=== PATIENT | female | born 1990 | race American Indian/Alaskan Native ===

== ENCOUNTER 2018-06-15 23:10 | Emergency (ER) | payer MEDICAID ==
[2018-06-15 23:56] LABS: Bilirubin,Urine NEG (Negative); Blood,Urine NEG (Negative); Protein,Urine <15 mg/dL mg/dL (Negative); Urobilinogen,Urine < 2.0 mg/dL (<2.0)
[2018-06-16] LABS: Basophils # (Auto) 0.1 K/mm3 (0.0-0.1); Basophils % (Auto) 0.9 % (0.0-1.8); Eosinophils # (Auto) 0.4 K/mm3 (0.0-0.4); Hematocrit 35.7 % (30.3-42.9); Hemoglobin 12.3 gm/dl (10.1-14.3); Lymphocytes # (Auto) 2.7 K/mm3 (1.2-5.4); Lymphocytes % (Auto) 41.8 % (13.4-35.0); Mean Corpuscular HGB Conc 34 % (30-34); Mean Corpuscular Volume 91 fl (79-97); Monocytes # (Auto) 0.7 K/mm3 (0.0-0.8); Monocytes % (Auto) 11.3 % (0.0-7.3); Platelet Count 226 K/mm3 (140-440); Red Blood Count 3.95 M/mm3 (3.65-5.03); Red Cell Distribution Width 14.6 % (13.2-15.2)
[2018-06-16 00:16] LABS: Color,Urine Yellow (Yellow)
--- NOTE | 2018-06-16 01:53 | Ultrasound Report ---
FINAL REPORT PROCEDURE: US OB < = 14 WEEKS FETUS TECHNIQUE: Real-time transabdominal and transvaginal sonography of the uterus, placenta, amniotic fl uid, adnexa, and fetus was performed with image documentation. Measurements were obtained to determin e age/size. M-mode Doppler was used to document heartbeat. CPT 75953 HISTORY: possible prenant with vag bleeding COMPARISON: No prior studies are available for comparison. FINDINGS: CRL: 2.8 mm, which corresponds to a gestational age of: 5 weeks, 6 days. Yolk Sac: Normal. Embryonic Cardiac Activity: No heart activity is identified on this study. Gestational Sac: Normal. Amniotic fluid: Normal. Cervix: Normal. Right Ovary: Normal. Left Ovary: Normal. Estimated delivery date: Normal. Uterus and adnexa: Normal. The findings are most consistent with an early intrauterine . No heart activity is carolyn ntified on this study. This may be too early for heart activity. Followup study with repeat ultrasoun d within 14 days would be of benefit. IMPRESSION: There is a gestational sac within the uterus. A pole is identified. The approximate gestational age is 5 weeks. No heart activity is identified on this study. Findings could indicate early i ntrauterine or possibly failure. Followup evaluation with repeat ultrasound in ap proximately 14 days should be entertained.
--- NOTE | 2018-06-16 02:30 | Emergency Department Report ---
ED Female HPI - General Chief complaint: Vaginal Bleeding Stated complaint: VAGINAL BLEEDING Time Seen by Provider: 06/16/18 02:26 Source: patient Mode of arrival: Ambulatory Limitations: No Limitations - History of Present Illness MD Complaint: vaginal bleeding - Related Data Home Medications Medication Instructions Recorded Confirmed Last Taken Ferrous Sulfate [Feosol 325 MG tab] 1 tab PO DAILY 01/23/15 01/29/15 3 Days Ago ~01/26/15 Vit-Fe Fumar-FA [ 1 tab PO DAILY 01/23/15 01/29/15 3 Days Ago Vitamin] ~01/26/15 Previous Rx's Medication Instructions Recorded Last Taken Type Ferrous Sulfate [Feosol 325 MG tab] 325 mg PO BID #60 tablet 01/25/15 Unknown Rx HYDROcodone/APAP 5-325 [[place] 1 each PO Q4HR PRN #30 tablet 01/25/15 Unknown Rx 5/325] Ibuprofen [Motrin] 800 mg PO Q8HR PRN #30 tablet 01/25/15 Unknown Rx Pnv,Calcium 72/Iron/Folic Acid 1 each PO DAILY #30 tablet 01/25/15 Unknown Rx [ Plus Tablet] Acetaminophen [Acetaminophen TAB] 500 mg PO TID PRN #20 tablet 03/02/16 Unknown Rx Allergies Allergy/AdvReac Type Severity Reaction Status Date / Time No Known Allergies Allergy Verified 03/01/16 22:40 ED Review of Systems ROS: Stated complaint: VAGINAL BLEEDING Other details as noted in HPI ED Past Medical Hx - Past Medical History Previous Medical History?: No Hx Hypertension: No Hx Diabetes: No Hx Deep Vein Thrombosis: No Hx Renal Disease: No Hx Sickle Cell Disease: No Hx Seizures: No Hx Asthma: No Hx HIV: No - Surgical History Past Surgical History?: Yes Additional Surgical History: - Social History Smoking Status: Never Smoker Substance Use Type: None - Medications Home Medications: Home Medications Medication Instructions Recorded Confirmed Last Taken Type Ferrous Sulfate [Feosol 325 MG tab] 1 tab PO DAILY 01/23/15 01/29/15 3 Days Ago History ~01/26/15 Vit-Fe Fumar-FA [ 1 tab PO DAILY 01/23/15 01/29/15 3 Days Ago History Vitamin] ~01/26/15 Ferrous Sulfate [Feosol 325 MG tab] 325 mg PO BID #60 tablet 01/25/15 Unknown Rx HYDROcodone/APAP 5-325 [[place] 1 each PO Q4HR PRN #30 tablet 01/25/15 Unknown Rx 5/325] Ibuprofen [Motrin] 800 mg PO Q8HR PRN #30 tablet 01/25/15 Unknown Rx Pnv,Calcium 72/Iron/Folic Acid 1 each PO DAILY #30 tablet 01/25/15 Unknown Rx [ Plus Tablet] Acetaminophen [Acetaminophen TAB] 500 mg PO TID PRN #20 tablet 03/02/16 Unknown Rx ED Physical Exam - General Limitations: No Limitations ED Course Vital Signs 06/15/18 23:22 Temperature 97.6 F Pulse Rate 87 Respiratory 16 Rate Blood Pressure 99/55 O2 Sat by Pulse 100 Oximetry ED Medical Decision Making - Lab Data Result diagrams: 06/15/18 23:31 Laboratory Tests 06/15/18 06/15/18 06/15/18 23:31 23:31 23:31 WBC 6.6 RBC 3.95 Hgb 12.3 Hct 35.7 MCV 91 MCH 31 MCHC 34 RDW 14.6 Plt Count 226 Lymph % (Auto) 41.8 H [place] % (Auto) 11.3 H Eos % (Auto) 6.0 H Baso % (Auto) 0.9 Lymph # 2.7 [place] # 0.7 Eos # 0.4 Baso # 0.1 Seg Neutrophils % 40.0 Seg Neutrophils # 2.6 HCG, Quant 08513 H Urine Color Urine Turbidity Urine pH Ur Specific [place] Urine Protein Urine Glucose (UA) Urine Ketones Urine Blood Urine Nitrite Urine Bilirubin Urine Urobilinogen Ur Leukocyte Esterase Urine WBC (Auto) Urine RBC (Auto) U Epithel Cells (Auto) Blood Type O POSITIVE Antibody Screen Negative 06/15/18 23:44 WBC RBC Hgb Hct MCV MCH MCHC RDW Plt Count Lymph % (Auto) [place] % (Auto) Eos % (Auto) Baso % (Auto) Lymph # [place] # Eos # Baso # Seg Neutrophils % Seg Neutrophils # HCG, Quant Urine Color Yellow Urine Turbidity Clear Urine pH 6.0 Ur Specific [place] 1.013 Urine Protein <15 mg/dl Urine Glucose (UA) Neg Urine Ketones Neg Urine Blood Neg Urine Nitrite Neg Urine Bilirubin Neg Urine Urobilinogen < 2.0 Ur Leukocyte Esterase Neg Urine WBC (Auto) 1.0 Urine RBC (Auto) 1.0 U Epithel Cells (Auto) < 1.0 Blood Type Antibody Screen - Radiology Data Radiology results: report reviewed Patient: VANE CLEMENTE MR#: [id number] : 1990 Acct:[id number] Age/Sex: 27 / F ADM Date: 06/15/18 Loc: ED Attending Dr: Ordering Physician: TRAY LIND MD Date of Service: 06/15/18 Procedure(s): US OB transvaginal Accession Number(s): [id number] cc: TRAY LIND MD FINAL REPORT PROCEDURE: US OB lt; = 14 WEEKS FETUS TECHNIQUE: Real-time transabdominal and transvaginal sonography of the uterus, placenta, amniotic fluid, adnexa, and fetus was performed with image documentation. Measurements were obtained to determine age/size. M-mode Doppler was used to document heartbeat. CPT 97054 HISTORY: possible prenant with vag bleeding COMPARISON: No prior studies are available for comparison. FINDINGS: CRL: 2.8 mm, which corresponds to a gestational age of: 5 weeks, 6 days. Yolk Sac: Normal. Embryonic Cardiac Activity: No heart activity is identified on this study. Gestational Sac: Normal. Amniotic fluid: Normal. Cervix: Normal. Right Ovary: Normal. Left Ovary: Normal. Estimated delivery date: Normal. Uterus and adnexa: Normal. The findings are most consistent with an early intrauterine . No heart activity is identified on this study. This may be too early for heart activity. Followup study with repeat ultrasound within 14 days would be of benefit. IMPRESSION: There is a gestational sac within the uterus. A pole is identified. The approximate gestational age is 5 weeks. No heart activity is identified on this study. Findings could indicate early intrauterine or possibly failure. Followup evaluation with repeat ultrasound in approximately 14 days should be entertained. Transcribed By: [facility] Dictated By: YOLY WEST MD Electronically Authenticated By: YOLY WEST MD Signed Date/Time: 06/16/18153 DD/ 1 TD/TT: 06/16/18151 Critical care attestation.: If time is entered above; I have spent that time in minutes in the direct care of this critically ill patient, excluding procedure time. ED Disposition Condition: Stable
--- NOTE | 2018-06-16 03:09 | Emergency Department Report ---
ED Female HPI - General Chief complaint: Vaginal Bleeding Stated complaint: VAGINAL BLEEDING Time Seen by Provider: 06/16/18 02:26 Source: patient Mode of arrival: Ambulatory Limitations: No Limitations - History of Present Illness Initial comments: 7-year-old -[place] Citizen female presents to emergency department complaining of a 2 day history of vaginal discharge. Subsequently blurred which she seeks to have further evaluation due to her being . She'll follow-up with an [employer] in [address] Ancelmo jaramillo [facility] [place]. She reports having doors of an STD contact. MD Complaint: vaginal bleeding -: Gradual Location: suprapubic Radiation: non-radiating Severity scale (0 -10): 0 Consistency: constant Worsens with: none Are you Now?: Yes Associated Symptoms: vaginal bleeding. denies: abdominal pain, nausea/vomiting, fever/chills, dysuria, hematuria, shortness of breath, syncope, weakness - Related Data Sexually active: Yes Home Medications Medication Instructions Recorded Confirmed Last Taken Ferrous Sulfate [Feosol 325 MG tab] 1 tab PO DAILY 01/23/15 01/29/15 3 Days Ago ~01/26/15 Vit-Fe Fumar-FA [ 1 tab PO DAILY 01/23/15 01/29/15 3 Days Ago Vitamin] ~01/26/15 Previous Rx's Medication Instructions Recorded Last Taken Type Ferrous Sulfate [Feosol 325 MG tab] 325 mg PO BID #60 tablet 01/25/15 Unknown Rx HYDROcodone/APAP 5-325 [[place] 1 each PO Q4HR PRN #30 tablet 01/25/15 Unknown Rx 5/325] Ibuprofen [Motrin] 800 mg PO Q8HR PRN #30 tablet 01/25/15 Unknown Rx Pnv,Calcium 72/Iron/Folic Acid 1 each PO DAILY #30 tablet 01/25/15 Unknown Rx [ Plus Tablet] Acetaminophen [Acetaminophen TAB] 500 mg PO TID PRN #20 tablet 03/02/16 Unknown Rx Allergies Allergy/AdvReac Type Severity Reaction Status Date / Time No Known Allergies Allergy Verified 03/01/16 22:40 ED Review of Systems ROS: Stated complaint: VAGINAL BLEEDING Other details as noted in HPI Constitutional: denies: chills, fever Eyes: denies: eye pain, eye discharge, vision change ENT: denies: ear pain, throat pain Respiratory: denies: cough, shortness of breath, wheezing Cardiovascular: denies: chest pain, palpitations Endocrine: no symptoms reported Gastrointestinal: denies: abdominal pain, nausea, diarrhea Genitourinary: denies: urgency, dysuria, discharge Musculoskeletal: denies: back pain, joint swelling, arthralgia Skin: denies: rash, lesions Neurological: denies: headache, weakness, paresthesias Psychiatric: denies: anxiety, depression Hematological/Lymphatic: denies: easy bleeding, easy bruising ED Past Medical Hx - Past Medical History Previous Medical History?: No Hx Hypertension: No Hx Diabetes: No Hx Deep Vein Thrombosis: No Hx Renal Disease: No Hx Sickle Cell Disease: No Hx Seizures: No Hx Asthma: No Hx HIV: No - Surgical History Past Surgical History?: Yes Additional Surgical History: - Social History Smoking Status: Never Smoker Substance Use Type: None - Medications Home Medications: Home Medications Medication Instructions Recorded Confirmed Last Taken Type Ferrous Sulfate [Feosol 325 MG tab] 1 tab PO DAILY 01/23/15 01/29/15 3 Days Ago History ~01/26/15 Vit-Fe Fumar-FA [ 1 tab PO DAILY 01/23/15 01/29/15 3 Days Ago History Vitamin] ~01/26/15 Ferrous Sulfate [Feosol 325 MG tab] 325 mg PO BID #60 tablet 01/25/15 Unknown Rx HYDROcodone/APAP 5-325 [[place] 1 each PO Q4HR PRN #30 tablet 01/25/15 Unknown Rx 5/325] Ibuprofen [Motrin] 800 mg PO Q8HR PRN #30 tablet 01/25/15 Unknown Rx Pnv,Calcium 72/Iron/Folic Acid 1 each PO DAILY #30 tablet 01/25/15 Unknown Rx [ Plus Tablet] Acetaminophen [Acetaminophen TAB] 500 mg PO TID PRN #20 tablet 03/02/16 Unknown Rx ED Physical Exam - General Limitations: No Limitations General appearance: alert, in no apparent distress - Head Head exam: Present: atraumatic, normocephalic - Eye Eye exam: Present: normal appearance, PERRL, EOMI Pupils: Present: normal accommodation - ENT ENT exam: Present: mucous membranes moist - Neck Neck exam: Present: normal inspection - Respiratory Respiratory exam: Present: normal lung sounds bilaterally. Absent: respiratory distress - Cardiovascular Cardiovascular Exam: Present: regular rate, normal rhythm. Absent: systolic murmur, diastolic murmur, rubs, gallop - GI/Abdominal GI/Abdominal exam: Present: soft, normal bowel sounds. Absent: distended, tenderness, guarding, rebound, hyperactive bowel sounds, hypoactive bowel sounds, organomegaly, bruit - Extremities Exam Extremities exam: Present: normal inspection, full ROM, normal capillary refill. Absent: pedal edema, joint swelling, calf tenderness - Back Exam Back exam: Present: normal inspection - Neurological Exam Neurological exam: Present: alert, oriented X3 - Psychiatric Psychiatric exam: Present: normal affect, normal mood - Skin Skin exam: Present: warm, dry, intact, normal color. Absent: rash ED Course Vital Signs 06/15/18 23:22 Temperature 97.6 F Pulse Rate 87 Respiratory 16 Rate Blood Pressure 99/55 O2 Sat by Pulse 100 Oximetry ED Medical Decision Making - Lab Data Result diagrams: 06/15/18 23:31 - Radiology Data Radiology results: report reviewed (intrauterine is noted. With recommendation for re-ultrasound in 14 days. Due to inability to see a heart tone due to a likely be too early to tell) Critical care attestation.: If time is entered above; I have spent that time in minutes in the direct care of this critically ill patient, excluding procedure time. ED Disposition Clinical Impression: Intrauterine , Threatened miscarriage Disposition: DC-01 TO HOME OR SELFCARE Is pt being admited?: No Does the pt Need Aspirin: No Condition: Stable Instructions: (ED), Threatened Miscarriage (ED) Referrals: MARIEL AG MD [Staff Physician] - 06/17/18 (Please keep your appointment for follow-up with Dr. Ag)
[2018-06-16 03:46] VITALS: BP 97/60
== END 2018-06-16 03:46 | disposition home or self-care (01) ==
LOC: ED 23:10
DX: O20.0 Threatened abortion (principal); Z3A.01 Less than 8 weeks gestation of pregnancy
CPT/HCPCS: 36415; 76801; 76817; 81001; 84702; 85025; 86850; 86900; 86901